=== PATIENT | female | born 1985 | race Caucasian/White ===

== ENCOUNTER 2020-06-17 09:37 | Emergency (ER) | payer OTHER ==
[~2020-06-17] VITALS: Ht 172.7 cm; Wt 62.6 kg
[2020-06-17 10:01] LABS: ABSOLUTE NEUTROPHILS 5.2 thou/uL (1.4-8.2); BASOPHILS 0.5 % (0.0-2.0); EOSINOPHILS 4.8 % (0.0-3.0); HEMOGLOBIN 12.5 gm/dL (12.0-15.0); LYMPHOCYTES 26.9 % (24.0-44.0); MCH 29.2 pg (26.0-34.0); MCV 88.4 fL (80.0-100.0); MONOCYTES 7.6 % (1.0-8.0); PLATELET COUNT 279 thou/uL (150-400); POLYS 60.2 % (36.0-66.0); RBC 4.29 mil/uL (4.20-5.00); RDW 14.1 % (10.5-14.5); WBC 8.6 thou/uL (4.0-11.0)
[2020-06-17 10:26] LABS: CALCIUM 8.8 mg/dL (8.5-10.1); MAGNESIUM 1.8 mg/dL (1.8-2.4); POTASSIUM 3.4 mmol/L (3.5-5.1)
[2020-06-17 11:08] VITALS: BP 110/70
== END 2020-06-17 11:09 | disposition home or self-care (01) ==
LOC: ER 09:37
PROVIDERS: Emergency Medicine
DX: R56.9 Unspecified convulsions (principal); J45.909 Unspecified asthma, uncomplicated; F17.210 Nicotine dependence, cigarettes, uncomplicated